=== PATIENT | female | born 1940 | race Two or more races ===

== ENCOUNTER 2024-05-08 01:48 | Emergency (ER) | payer OTHER ==
[~2024-05-08] VITALS: Ht 167.6 cm; Wt 91.0 kg
[2024-05-08 02:22] LABS: Basophils # (auto) 0 10 ^3/uL (0-0.2); Basophils % (auto) 0.3 % (0.0-2.0); Eosinophils # (auto) 0 10 ^3/uL (0-0.8); Hematocrit 44.3 % (36.0-46.0); Hemoglobin 14.5 g/dL (12.2-16.2); Lymphocytes # (auto) 0.4 10 ^3/uL (0.4-5.4); Lymphocytes % (auto) 5.3 % (10.0-50.0); Mean Corpuscular Hemoglobin 29.1 pg (28.0-32.0); Mean Corpuscular Hgb Conc. 32.8 g/dL (32.0-36.0); Mean Corpuscular Volume 88.6 fL (80.0-100.0); Monocytes # (auto) 0.2 10 ^3/uL (0-1.3); Monocytes % (auto) 2.6 % (0.0-12.0); Neutrophils # (auto) 6.2 10 ^3/uL (1.6-8.6); Neutrophils % (auto) 91.8 % (37.0-80.0); Platelet Count (auto) 237 10^3/uL (140-450); Red Cell Distribution Width 15.2 % (11.8-14.3); White Blood Cell 6.7 10^3/uL (4.4-10.8)
[2024-05-08 02:34] VITALS: PULSE 102; RESP 21; O2SAT 99
[2024-05-08 02:53] LABS: Alanine Aminotransferase 17 U/L (7-40); Albumin 4.8 g/dL (3.2-4.8); Alkaline Phosphatase 116 U/L (46-116); Anion Gap 9 (5-15); Aspartate Aminotransferase 18 U/L (13-40); Blood Urea Nitrogen 15 mg/dL (9-23); Calcium 10.2 mg/dL (8.7-10.4); Carbon Dioxide 22 mmol/L (20-31); Chloride 104 mmol/L (98-107); Glucose 165 mg/dL (74-106); Lipase 30 U/L (12-53); Potassium 3.6 mmol/L (3.5-5.1); Sodium 135 mmol/L (136-145)
[2024-05-08 02:54] LABS: Bilirubin, Total 0.9 mg/dL (0.2-1.0); Total Protein 7.6 g/dL (5.7-8.2)
[2024-05-08] MEDS: IOHEXOL 300 MG/ML 100ML BOTTLE IJ ONE ×2 (02:55→04:12)
[2024-05-08] MEDS: SODIUM CHLORIDE 0.9% 1,000 ML IV ONE (02:55)
[2024-05-08] MEDS: ONDANSETRON HCL 4 MG/2 ML VIAL IV ONE ×2 (02:55→12:24)
[2024-05-08] MEDS: MORPHINE SULFATE 4 MG/ML SYR/VIAL IV ONE ×2 (02:55→04:44)
[2024-05-08 05:05] LABS: Urine Bacteria None Seen /hpf (None Seen)
[2024-05-08 05:27] LABS: Urine Blood Negative /uL (Negative); Urine Clarity Clear (Clear); Urine Color Light-Yellow (Yellow); Urine Protein, UAD Negative (Negative); Urine Specific Gravity 1.016 (1.001-1.035); Urine Urobilinogen Normal (Negative); Urine WBC 1 /hpf (0 - 5); Urine pH 7.5 (5.0-9.0)
[2024-05-08] MEDS: LABETALOL HCL 20 MG/4 ML VL IV ONE (06:38)
[2024-05-08] MEDS: AZITHROMYCIN 500MG/ 250ML 250 ML IV ONE (06:38)
[2024-05-08] MEDS: cefTRIAXone 1GM/50ML D5W 50 ML IV ONE (06:38)
[2024-05-08 07:36] VITALS: PULSE 90; RESP 19; O2SAT 98
[2024-05-08] MEDS: LORazepam 2MG/ML-1ML VIAL IV ONE (08:07)
[2024-05-08] MEDS ORDERED: GABA-1250 PO (09:58)
[2024-05-08] MEDS ORDERED: LORA-483 PO (09:58)
[2024-05-08] MEDS ORDERED: MONT-8 PO (09:58)
[2024-05-08] MEDS ORDERED: TIZA-142 PO (09:58)
[2024-05-08] MEDS ORDERED: OMEP-411 (09:58)
[2024-05-08] MEDS ORDERED: NAP500T PO (09:59)
[2024-05-08] MEDS: METOPROLOL TARTRATE 25 MG TAB PO SCH (10:14)
[2024-05-08 19:22] VITALS: RESP 22; O2SAT 97
[2024-05-08] MEDS: HYDROcodone-ACET 5/325MG TAB PO PRN (22:32)
[2024-05-08] MEDS: MONTELUKAST SODIUM 10 MG TAB PO SCH (22:33)
[2024-05-09] MEDS: HALOPERIDOL LACTATE 5 MG/ML INJ VIAL IM ONE (02:37)
[2024-05-09] MEDS: PANTOPRAZOLE 40 MG TAB PO SCH (05:30)
[2024-05-09 09:16] VITALS: PULSE 95; RESP 21; O2SAT 96
[2024-05-09 21:12] VITALS: PULSE 77; RESP 16; O2SAT 96
[2024-05-10] MEDS: hydrALAZINE HCL 20 MG/ML VL IV PRN (09:16)
[2024-05-10 10:09] VITALS: BP 150/72; PULSE 92; RESP 15; TEMP 98; O2SAT 96
== END 2024-05-10 10:21 | disposition home or self-care (01) ==
LOC: EDBD 01:48 → ER 01:48
DX: J18.9 Pneumonia, unspecified organism (principal); R42 Dizziness and giddiness; I10 Essential (primary) hypertension; K21.9 Gastro-esophageal reflux disease without esophagitis; Z79.899 Other long term (current) drug therapy
CPT/HCPCS: 36415; 70450; 71045; 71260; 74177; 80053; 81001; 82550; 82962; 83605; 83690; 84484; 85025; 93005; 96361; 96365; 96366; 96368; 96372; 96375; 96376; 97163; 99285; J0360; J0456; J0696; J2060; J2270; J2405; J7030; Q9967